=== PATIENT | female | born 1990 | race Asian ===

== ENCOUNTER 2024-12-18 20:15 | Emergency (ER) | payer SELFPAY ==
[2024-12-18 20:27] VITALS: BP 145/69; PULSE 77; RESP 16; TEMP 37.3; O2SAT 100; BMI 17.7
[2024-12-18 23:45] VITALS: BP 139/65; PULSE 72; O2SAT 99
[2024-12-19] VITALS: PULSE 69; O2SAT 100
[2024-12-19 00:30] VITALS: PULSE 71; O2SAT 100
--- NOTE | 2024-12-19 00:48 | ED.WOUNDLAC ---
HPI - Wound/Laceration General Chief Complaint: Wound/Laceration Stated Complaint: Right knee laceration Time Seen by Provider: 12/19/24 00:44 Source: patient Mode of arrival: Ambulatory History of Present Illness HPI narrative: 33-year-old female was hiking and fell 1:00 p.m. earlier today, cut her right knee. No other injuries recalled. She has been able to walk around on it well. Knee feels stable. No suspected tendon injury. No other injuries to the ipsilateral lower extremity. No injuries to head, neck, face, trunk, upper extremities. Related Data Previous Rx's Medication Instructions Recorded cephalexin 500 mg capsule 500 mg PO QID 7 days #28 caps 12/19/24 Allergies Allergy/AdvReac Type Severity Reaction Status Date / Time No Known Drug Allergies Allergy Verified 12/18/24 20:26 Patient History Social History Smoking Status: Never smoker Smoking Status: Never smoker Exam Narrative Exam Narrative: GENERAL: Well-developed patient, in mild distress. HEAD: Atraumatic. Normocephalic. EYES: Pupils equal round and reactive. Extraocular motions intact. No scleral icterus. No injection or drainage. ENT: Nose without bleeding, purulent drainage. Throat without erythema, tonsillar hypertrophy or exudate. Airway patent. NECK: Trachea midline. Non tender CARDIOVASCULAR: Regular rate and rhythm without murmurs, gallops, or rubs. RESPIRATORY: Clear to auscultation. Breath sounds equal bilaterally. No wheezes, rales, or rhonchi. GASTROINTESTINAL: Abdomen soft, non-tender, nondistended. EXTREMITIES: Right anterior prepatellar horizontal laceration curvilinear 2 cm, no visible tendon structures or foreign bodies. Able to fully extend her knee. BACK: Nontender without deformity or crepitance. No flank tenderness. NEURO: AOx3. Motor functions grossly nonfocal SKIN: No rash or erythema of visible areas Initial Vital Signs Initial Vital Signs: Vital Signs Temperature 99.2 F 12/18/24 20:27 Pulse Rate 77 12/18/24 20:27 Respiratory Rate 16 12/18/24 20:27 Blood Pressure 145/69 H 12/18/24 20:27 Pulse Oximetry 100 12/18/24 20:27 Oxygen Delivery Method Room Air 12/18/24 20:27 Procedures Laceration Repair Laceration 1: Site: lower extremity (Anterior knee patellar tendon region, just medial, no visible tendon structures, some debris, irrigated after local anesthetic.) Side (If applicable): right Size (cm): 2 Description: linear Depth: simple, single layer Local Anesthetic: lidocaine 1% and with epi Amount of anesthesia used (mL): 4 Pre-repair: wound explored and irrigated extensively Skin layer closed with: nylon Skin layer suture size: 3-0 Number of sutures: 3 Technique: simple, interrupted Course Orders Ordered: Discontinued Medications Cephalexin HCl (Cephalexin 250 Mg Capsule) 500 mg PO NOW ONE Stop: 12/19/24 01:34 Last Admin: 12/19/24 01:50 Dose: 500 mg Documented By: HNSruthi Lidocaine/Epinephrine (Lidocaine 1% W/Epi 10ml) 4 ml INJ INTRA-OP ONE Stop: 12/19/24 00:47 Vital Signs Vital signs: Vital Signs - 8 hr 12/18/24 23:45 12/18/24 23:45 12/19/24 00:00 Pulse Rate 72 69 Blood Pressure 139/65 Pulse Oximetry 99 100 Oxygen Delivery Method Room Air 12/19/24 00:30 12/19/24 01:00 12/19/24 01:30 Pulse Rate 71 79 73 Blood Pressure Pulse Oximetry 100 98 100 Oxygen Delivery Method 12/19/24 01:54 12/19/24 01:54 Pulse Rate 76 Blood Pressure 123/84 Pulse Oximetry 100 Oxygen Delivery Method Room Air MDM - Wound/Laceration MDM Narrative Medical decision making narrative: Right anterior prepatellar knee skin laceration, no visible tendon, normal knee extension function. No radiograph indicated, patient agrees. Some gravel like contamination. After local field block patient had extensive irrigation by nursing. See wound care closure note, local anesthetic, primary sutures simple interrupted x3, with use of 3-0 Ethilon. Patient given oral Keflex dose given gravel contamination, with prescription for further Keflex. Wound check advised with the regular doctor early next week. Discharged home with family. Return precautions discussed. Discharge Plan Departure Patient Disposition: Home Clinical Impression: Laceration of right knee Instructions: DI for Laceration Repair Activity Restrictions/Additional Instructions: Fall while hiking, sustaining laceration to the right knee, some debris dirt like contamination, local anesthetic and then washed out scrub cleaning. Oral dose of antibiotic cephalexin given, with prescription sent to your pharmacy to help prevent infection. Primary closure with stitches performed. Suture removal might be 7-10 days depending if there is development of wound infection. Increased wound infection risk given contamination. There also can be micro debris retained foreign material contamination. Wound check advised with your regular doctor on Saturday. Return to this/nearest emergency department for any change worsening symptoms or any concerns prior. Prescriptions: New cephalexin 500 mg capsule 500 mg PO QID 7 Days Qty: 28 0RF Stand Alone Forms: Patient Portal/API/Survey
[2024-12-19 01:00] VITALS: PULSE 79; O2SAT 98
[2024-12-19 01:30] VITALS: PULSE 73; O2SAT 100
[2024-12-19] MEDS: cephALEXin 250 MG CAPSULE 500 MG PO (01:50)
[2024-12-19 01:54] VITALS: BP 123/84; PULSE 76; O2SAT 100
== END 2024-12-19 01:58 | disposition home or self-care (01) ==
PROVIDERS: Emergency Provider Emergency Medicine
DX: S81.011A Laceration without foreign body, right knee, initial encounter (principal); S81.021A Laceration with foreign body, right knee, initial encounter; W19.XXXA Unspecified fall, initial encounter; Y93.01 Activity, walking, marching and hiking
CPT/HCPCS: 12001; 99283